=== PATIENT | female | born 2000 | race Caucasian/White ===

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

== ENCOUNTER 2022-04-25 16:13 | Emergency (ER) | payer OTHER ==
[~2022-04-25] VITALS: Ht 160 cm; Wt 66.2 kg
[2022-04-25 16:17] VITALS: BP 119/75
--- NOTE | 2022-04-25 16:47 | NUR ---
Dr. Jackson evaluating patient at bedside.
[2022-04-25] MEDS ORDERED: ACETAMINOPHEN 325 MG TAB PO ONE (16:55)
[2022-04-25] MEDS ORDERED: ONDANSETRON 4 MG ODT PO ONE (16:55)
--- NOTE | 2022-04-25 17:12 | NUR ---
21 y/o female bib self for left side of face pain s/p hitting head on concrete from falling off of skateboard x 3 hours ago. Patient did loose conciousness for an unknown amount of time. Patient has 8/10 pounding headache. Patient also has had 3 episodes of nausea and vomiting. Medical History: Denies NKDA
[2022-04-25] MEDS ORDERED: IBUP-2213 PO (19:09)
[2022-04-25] MEDS ORDERED: ACET-10509 PO (19:09)
[2022-04-25] MEDS ORDERED: ONDA-188 SL (19:09)
--- NOTE | 2022-04-25 19:26 | NUR ---
Report given to [facility] Steven for transfer of care.
--- NOTE | 2022-04-25 19:47 | NUR ---
Patient discharged with v/s stable. Written and verbal after care instructions given and explained. Patient alert, oriented and verbalized understanding of instructions. Ambulatory with steady gait. All questions addressed prior to discharge. ID band removed. Patient advised to follow up with PMD. Rx of Ibuprofen and tylenol extra strength given. Opportunity to ask questions provided and answered.
== END 2022-04-25 19:47 | disposition home or self-care (01) ==
LOC: MED 16:13
DX: S06.0X1A Concussion with loss of consciousness of 30 minutes or less, initial encounter (principal); R11.2 Nausea with vomiting, unspecified; R42 Dizziness and giddiness; J45.909 Unspecified asthma, uncomplicated; G51.0 Bell's palsy; Z79.899 Other long term (current) drug therapy; V00.131A Fall from skateboard, initial encounter; Y93.51 Activity, roller skating (inline) and skateboarding; Y92.89 Other specified places as the place of occurrence of the external cause; Y99.8 Other external cause status
CPT/HCPCS: 70450; 99284; Q0162